=== PATIENT | female | born 2000 | race Caucasian/White ===

== ENCOUNTER → 2023-05-23 | Outpatient (CLI) | payer OTHER ==
[2023-05-23 18:20] LABS: HEMATOCRIT 38.7 % (36.0-47.0); HEMOGLOBIN 12.8 g/dl (12.0-15.5); MEAN CORPUSCULAR HEMOGLOBIN 27.5 pg (27.0-33.0); MEAN CORPUSCULAR HGB CONC 33.1 g/dl (32.0-36.5); PLATELET COUNT, AUTOMATED 324 10^3/uL (150-450); RED BLOOD COUNT 4.66 10^6/uL (4.00-5.40); WHITE BLOOD COUNT 12.7 10^3/uL (4.0-10.0)
[2023-05-23 19:16] LABS: HIV 1&2 SCREEN NEGATIVE (NEGATIVE)
[2023-05-23 19:23] LABS: HEPATITIS C VIRUS ABY INDEX 0.04 INDEX (<0.8)
== END ==
LOC: M PLALAB 15:09
PROVIDERS: ATTEND Advanced Practice Midwife
DX: Z34.01 Encounter for supervision of normal first pregnancy, first trimester (principal)
CPT/HCPCS: 36415; 85027; 86762; 86780; 86803; 86850; 86900; 86901; 87086; 87340; 87389; 87490; 87590; G0463

== ENCOUNTER → 2023-06-24 | Outpatient (CLI) | payer OTHER | LOC: M PLALAB 15:52 | PROVIDERS: ATTEND Obstetrics & Gynecology | DX: Z36.89 Encounter for other specified antenatal screening (principal) ==

== ENCOUNTER → 2023-07-18 | Outpatient (CLI) | payer OTHER | LOC: M WHC 09:40 | PROVIDERS: ATTEND Obstetrics & Gynecology | DX: Z34.92 Encounter for supervision of normal pregnancy, unspecified, second trimester (principal); Z3A.19 19 weeks gestation of pregnancy ==

== ENCOUNTER → 2023-07-18 | Outpatient (REF) | payer OTHER | LOC: M PLALAB 10:16 | PROVIDERS: ATTEND Advanced Practice Midwife | DX: N76.0 Acute vaginitis (principal); N89.8 Other specified noninflammatory disorders of vagina; R39.89 Other symptoms and signs involving the genitourinary system; Z53.9 Procedure and treatment not carried out, unspecified reason ==

== ENCOUNTER → 2023-09-15 | Outpatient (CLI) | payer OTHER ==
[2023-09-15 10:59] LABS: HEMATOCRIT 36.1 % (36.0-47.0); HEMOGLOBIN 11.5 g/dl (12.0-15.5); MEAN CORPUSCULAR HEMOGLOBIN 27.4 pg (27.0-33.0); MEAN CORPUSCULAR HGB CONC 31.9 g/dl (32.0-36.5); MEAN CORPUSCULAR VOLUME 86.2 fl (80.0-96.0); PLATELET COUNT, AUTOMATED 232 10^3/uL (150-450); RED BLOOD COUNT 4.19 10^6/uL (4.00-5.40); WHITE BLOOD COUNT 11.4 10^3/uL (4.0-10.0)
== END ==
LOC: M PLALAB 07:58
PROVIDERS: ATTEND Advanced Practice Midwife
DX: Z34.02 Encounter for supervision of normal first pregnancy, second trimester (principal)

== ENCOUNTER → 2023-09-19 | Outpatient (CLI) | payer OTHER | LOC: M WHC 15:18 | PROVIDERS: ATTEND Advanced Practice Midwife | DX: Z34.02 Encounter for supervision of normal first pregnancy, second trimester (principal) ==

== ENCOUNTER → 2023-10-20 | Outpatient (CLI) | payer OTHER | LOC: M LAB 06:32 | PROVIDERS: ATTEND Advanced Practice Midwife | DX: O99.810 Abnormal glucose complicating pregnancy (principal); Z3A.00 Weeks of gestation of pregnancy not specified ==

== ENCOUNTER → 2023-11-03 | Outpatient (CLI) | payer OTHER | LOC: M WHC 10:46 | PROVIDERS: ATTEND Advanced Practice Midwife | DX: Z34.03 Encounter for supervision of normal first pregnancy, third trimester (principal) ==

== ENCOUNTER → 2023-11-19 | Outpatient (REF) | payer OTHER | LOC: M PLALAB 15:36 | PROVIDERS: ATTEND Advanced Practice Midwife | DX: Z34.80 Encounter for supervision of other normal pregnancy, unspecified trimester (principal); Z36.85 Encounter for antenatal screening for Streptococcus B ==

== ENCOUNTER 2023-12-15 14:12 | Inpatient (IN) | payer OTHER ==
[~2023-12-15] VITALS: Ht 160 cm; Wt 73.4 kg
[2023-12-15] VITALS (30 sets, daily range): BP systolic 102–144; BP diastolic 56–90
[2023-12-15] MEDS ORDERED: PRENTAB9 PO (14:35)
[2023-12-15] MEDS ORDERED: HOME MED LIST COMPLETE! XX SCH (14:35)
[2023-12-15] MEDS ORDERED: TRAZ-252 PO (14:35)
[2023-12-15] MEDS ORDERED: NOXI1TAB PO (14:35)
[2023-12-15] MEDS ORDERED: TRANEXAMIC ACID INJection 1,000 MG in NS 100 ML IV PRN (14:50)
[2023-12-15] MEDS ORDERED: LIDOCAINE 1% MDV 20ML VIAL INFIL PRN (14:50)
[2023-12-15] MEDS ORDERED: CARBOPROST TROMETHAMINE 250 MCG/ML AMP IM PRN (14:50)
[2023-12-15] MEDS ORDERED: OXYTOCIN INJ 10UNITS/ML 1ML VIAL IM PRN (14:50)
[2023-12-15] MEDS ORDERED: METHYLERGONOVINE MALEATE 0.2MG/ML 1ML VIAL IM PRN (14:50)
[2023-12-15] MEDS: LACTATED RINGER'S 1000 ML IV STA (15:16)
[2023-12-15] MEDS: VANCOMYCIN HCL 1,000 MG, VIAL MATE ADAPTER 1 EACH in NS 250 ML IV SCH (15:17)
[2023-12-15 15:24] LABS: HEMATOCRIT 39.5 % (36.0-47.0); MEAN CORPUSCULAR HEMOGLOBIN 26.8 pg (27.0-33.0); MEAN CORPUSCULAR HGB CONC 32.9 g/dl (32.0-36.5); MEAN CORPUSCULAR VOLUME 81.4 fl (80.0-96.0); PLATELET COUNT, AUTOMATED 238 10^3/uL (150-450); RED BLOOD COUNT 4.85 10^6/uL (4.00-5.40)
[2023-12-15] MEDS: LR 1,000 ML IV SCH (15:57)
[2023-12-15] MEDS ORDERED: diphenhydrAMINE 50MG/ML VIAL IV PRN ×2 (16:10)
[2023-12-15] MEDS ORDERED: ONDANSETRON 4MG 2ML VIAL IV PRN ×2 (16:10)
[2023-12-15] MEDS ORDERED: NALOXONE INJ 0.4MG/1ML VIAL IV PRN ×2 (16:10)
[2023-12-15] MEDS ORDERED: ePHEDrine SULFATE 25 MG/5 ML(5MG/ML) SYRINGE IVP PRN (16:10)
[2023-12-15] MEDS ORDERED: NALBUPHINE HCL 1MG/0.1ML (100MG/10ML) MDV IV PRN (16:10)
[2023-12-15] MEDS ORDERED: fentaNYL CITRATE 500 MCG, BUPIVACAINE HCL 0.5% 31.25 ML in NS 208.75 ML EPIDURAL SCH (16:10)
[2023-12-15] MEDS ORDERED: LR 500 ML IV PRN (16:10)
[2023-12-15] MEDS ORDERED: METOCLOPRAMIDE INJ 10MG/2ML VIAL IV PRN (16:10)
[2023-12-15] MEDS ORDERED: EPIDURAL/PCA KEYS XX PRN ×2 (16:10)
[2023-12-15] MEDS ORDERED: FENTANYL 2MCG/ML ROPIVACAINE 0.2% IN 0.9% NACL 100ML IVBAG As Ordered ONE (16:19)
[2023-12-15 16:35] LABS: HEPATITIS C VIRUS ABY INDEX < 0.02 INDEX (<0.8)
[2023-12-15] MEDS: FENTANYL/ROPIVACAINE/NACL BAG 100 ML EPIDURAL SCH (16:46)
[2023-12-15] MEDS: OXYTOCIN DRIP 30 UNITS in IV 1 EA IV PRN (21:45)
[2023-12-15] MEDS ORDERED: MOM 30ML SUSPENSION UDC PO PRN (22:15)
[2023-12-15] MEDS ORDERED: ACETAMINOPHEN TAB 650MG DOSE (2X325MG) PO PRN (22:15)
[2023-12-15] MEDS ORDERED: RHO(D) IMMUNE GLOBULIN/MALTOSE 500MCG(2500IU)/2.2ML VIAL (WINRHO) IM SCH (22:15)
[2023-12-15] MEDS ORDERED: ANUSOL HC CREAM 30GM TOP PRN (22:15)
[2023-12-15] MEDS: ACETAMINOPHEN 500 MG TAB PO PRN (23:11)
[2023-12-16 01:00] VITALS: BP 118/66; O2SAT 99
[2023-12-16 06:00] VITALS: BP 116/63; O2SAT 100
[2023-12-16] MEDS: PRENATAL VITAMINS CHEWABLE TABLET PO SCH (08:38)
[2023-12-16] MEDS: IBUPROFEN 600MG TAB PO PRN (10:44)
[2023-12-16] MEDS: DIBUCAINE 1% OINTMENT 30GM TOP PRN (10:44)
[2023-12-16] MEDS: IBUPROFEN 800 MG TAB PO PRN (18:21)
[2023-12-16 18:46] VITALS: BP 121/81; O2SAT 98
[2023-12-16] MEDS: DOCUSATE SODIUM 100MG CAPSULE PO PRN (20:43)
[2023-12-17 06:46] VITALS: BP 108/65; O2SAT 98
[2023-12-17] MEDS ORDERED: MEASLES,MUMPS,RUBELLA VACCINE INJ (MMR-II) SC.IMMUN ONE (09:00)
== END 2023-12-17 13:09 | disposition home or self-care (01) | DRG 807 ==
LOC: M LDO 14:12 → M LDI 14:38 → M OBS 12-16 07:39
PROVIDERS: ADMIT Advanced Practice Midwife; ATTEND Advanced Practice Midwife
PROC: 10E0XZZ Delivery of Products of Conception, External Approach (ICD-10-PCS; principal; 2023-12-15)
PROC: 0KQM0ZZ Repair Perineum Muscle, Open Approach (ICD-10-PCS; 2023-12-15)
DX: O48.0 Post-term pregnancy (principal); Z37.0 Single live birth; Z3A.40 40 weeks gestation of pregnancy; Z88.0 Allergy status to penicillin; O99.824 Streptococcus B carrier state complicating childbirth; D56.0 Alpha thalassemia; O99.02 Anemia complicating childbirth; O70.1 Second degree perineal laceration during delivery

== ENCOUNTER 2024-09-07 04:23 | Emergency (ER) | payer OTHER ==
[~2024-09-07] VITALS: Ht 160 cm; Wt 55.1 kg
[~2024-09-07 04:23] MED LIST: NOXI1TAB PO; PRENTAB9 PO; TRAZ-252 PO
[2024-09-07 05:05] LABS: BASO % 0.1 % (0.0-1.0); EOS # 0.2 10^3/uL (0.0-0.5); EOS % 2.7 % (0.0-3.0); HEMATOCRIT 40.5 % (36.0-47.0); LYMPH # 2.2 10^3/uL (1.5-5.0); LYMPH % 25.5 % (24.0-44.0); MEAN CORPUSCULAR HEMOGLOBIN 26.3 pg (27.0-33.0); MEAN CORPUSCULAR HGB CONC 32.1 g/dl (32.0-36.5); MEAN CORPUSCULAR VOLUME 81.8 fl (80.0-96.0); MONO # 0.5 10^3/uL (0.0-0.8); MONO % 6.1 % (2.0-8.0); NEUTROPHILS # 5.6 10^3/uL (1.5-8.5); NEUTROPHILS % 65.2 % (36.0-66.0); PLATELET COUNT, AUTOMATED 279 10^3/uL (150-450); RED BLOOD COUNT 4.95 10^6/uL (4.00-5.40); WHITE BLOOD COUNT 8.6 10^3/uL (4.0-10.0)
[2024-09-07 05:27] LABS: LIPASE 39 U/L (12-53)
[2024-09-07 05:30] LABS: ALBUMIN 4.1 G/DL (3.2-5.2); ALKALINE PHOSPHATASE 102 U/L (35-104); ALT/SGPT 18 U/L (7.0-40); AST/SGOT 12 U/L (<34); BILIRUBIN,DIRECT < 0.1 MG/DL (<0.4); BILIRUBIN,TOTAL 0.2 MG/DL (0.3-1.2); BLOOD UREA NITROGEN 12 MG/DL (9-23); CALCIUM LEVEL 8.9 MG/DL (8.5-10.1); CARBON DIOXIDE LEVEL 28 MMOL/L (20-31); CHLORIDE LEVEL 106 MMOL/L (98-107); GLOMERULAR FILTRATION RATE > 90.0 (>60); GLUCOSE, FASTING 96 MG/DL (60-100); POTASSIUM SERUM 3.6 MMOL/L (3.5-5.1); SODIUM LEVEL 143 MMOL/L (136-145); TOTAL PROTEIN 6.8 G/DL (5.7-8.2)
[2024-09-07 05:50] LABS: HCG, SERUM QUALITATIVE NEGATIVE (NEGATIVE)
[2024-09-07] MEDS: LIDOCAINE 2% 5ML JELLY UROJET TOP ONE (07:30)
[2024-09-07 07:59] LABS: KETONE, URINE AUTO RFX 1+ mg/dL (NEGATIVE); MUCUS, URINE RFX SMALL (NEGATIVE); NITRITE, URINE AUTO RFX NEGATIVE (NEGATIVE); RBC, URINE AUTO RFX 1 /HPF (0-3); SQUAM EPITHELIAL CELL UR AURFX 20 /HPF (0-6); WBC, URINE AUTO RFX 5 /HPF (0-3)
[2024-09-07 08:00] LABS: LEUKOCYTE ESTERASE UR AUTO RFX TRACE (NEGATIVE)
[2024-09-07] MEDS: KETOROLAC 30 MG/ML 1ML VIAL IV ONE (08:11)
[2024-09-07 09:16] LABS: Trichomonas vaginalis (AMP) NOT DETECTED (NEGATIVE)
[2024-09-07 09:40] LABS: GC DNA AMPLIFICATION NEGATIVE (NEGATIVE)
[2024-09-07] MEDS ORDERED: SULF1TAB23 PO (09:44)
[2024-09-07] MEDS: BACTRIM 160MG/800MG DS TAB PO ONE (10:04)
[2024-09-07 10:08] VITALS: BP 127/93; TEMP 97.6; O2SAT 98
== END 2024-09-07 10:10 | disposition home or self-care (01) ==
LOC: M ED 04:23
DX: N39.0 Urinary tract infection, site not specified (principal); F90.9 Attention-deficit hyperactivity disorder, unspecified type; Z88.1 Allergy status to other antibiotic agents; Z79.899 Other long term (current) drug therapy; Z79.2 Long term (current) use of antibiotics
CPT/HCPCS: 76830; 76856; 80048; 80076; 81001; 83690; 84703; 85025; 87086; 87661; 87810; 87850; 93976; 96374; 99284; J1885

== ENCOUNTER 2024-09-11 10:38 | Emergency (ER) | payer OTHER ==
[~2024-09-11] VITALS: Ht 160 cm; Wt 54.6 kg
[~2024-09-11 10:38] MED LIST changes: +SULF1TAB23 PO
[2024-09-11] MEDS ORDERED: NAPR-1405 PO (10:53)
[2024-09-11] MEDS ORDERED: ACET-840 PO (10:53)
[2024-09-11 11:18] LABS: KETONE, URINE AUTO RFX NEGATIVE (NEGATIVE); MUCUS, URINE RFX SMALL (NEGATIVE); NITRITE, URINE AUTO RFX NEGATIVE (NEGATIVE); RBC, URINE AUTO RFX 1 /HPF (0-3); SQUAM EPITHELIAL CELL UR AURFX 9 /HPF (0-6); WBC, URINE AUTO RFX 7 /HPF (0-3)
[2024-09-11 11:21] LABS: LEUKOCYTE ESTERASE UR AUTO RFX TRACE (NEGATIVE)
[2024-09-11 11:33] LABS: URINE PREG TEST NEGATIVE (NEGATIVE)
[2024-09-11 11:59] LABS: BASO % 0.2 % (0.0-1.0); EOS # 0.2 10^3/uL (0.0-0.5); EOS % 2.8 % (0.0-3.0); HEMATOCRIT 42.9 % (36.0-47.0); HEMOGLOBIN 13.3 g/dl (12.0-15.5); LYMPH % 32.1 % (24.0-44.0); MEAN CORPUSCULAR HEMOGLOBIN 25.6 pg (27.0-33.0); MEAN CORPUSCULAR VOLUME 82.7 fl (80.0-96.0); MONO # 0.6 10^3/uL (0.0-0.8); NEUTROPHILS # 3.4 10^3/uL (1.5-8.5); NEUTROPHILS % 55.7 % (36.0-66.0); PLATELET COUNT, AUTOMATED 298 10^3/uL (150-450); RED BLOOD COUNT 5.19 10^6/uL (4.00-5.40); WHITE BLOOD COUNT 6.1 10^3/uL (4.0-10.0)
[2024-09-11 12:23] LABS: LIPASE 40 U/L (12-53)
[2024-09-11 12:25] LABS: ALBUMIN 4.2 G/DL (3.2-5.2); ALKALINE PHOSPHATASE 102 U/L (35-104); ALT/SGPT 16 U/L (7.0-40); AST/SGOT 12 U/L (<34); BILIRUBIN,DIRECT < 0.1 MG/DL (<0.4); BILIRUBIN,TOTAL 0.3 MG/DL (0.3-1.2)
[2024-09-11] MEDS: MORPHINE 2 MG/ML 1ML VIAL IV ONE (12:32)
[2024-09-11] MEDS ORDERED: ISOVUE-370 76% 100ML VIAL As Ordered ONE (12:47)
[2024-09-11 14:09] VITALS: TEMP 98.5; O2SAT 100
[2024-09-11] MEDS ORDERED: HYDR-3713 PO (16:44)
[2024-09-11 16:53] VITALS: BP 129/59
== END 2024-09-11 17:09 | disposition home or self-care (01) ==
LOC: M ED 10:38
DX: N83.291 Other ovarian cyst, right side (principal); Z88.2 Allergy status to sulfonamides; Z79.1 Long term (current) use of non-steroidal anti-inflammatories (NSAID); Z79.899 Other long term (current) drug therapy
CPT/HCPCS: 74177; 76830; 76856; 80047; 80076; 81001; 83690; 84703; 85025; 87086; 93976; 96374; 99284; Q9967